=== PATIENT | male | born 1970 | race Caucasian/White ===

== ENCOUNTER 2018-07-05 07:26 | Observation (INO) | payer OTHER ==
[~2018-07-05 07:26] MED LIST: CEFAZOLIN 2 GM/50 ML (PMX) 50 ML IVPB
[2018-07-05] MEDS: SOD CHLORIDE 0.9% 1,000 ML IV ×2 (08:20→17:59)
[2018-07-05] MEDS ORDERED: METOCLOPRAMIDE 10 MG INJ IV (10:30)
[2018-07-05] MEDS ORDERED: ALBUTEROL 0.083% (NEB) 2.5 MG/3 ML AMP HHN (10:30)
[2018-07-05] MEDS ORDERED: HYDROmorphONE 1 MG/5 ML IV SYRINGE IV (10:30)
[2018-07-05] MEDS ORDERED: DIPHENHYDRAMINE 50 MG INJ IV (10:30)
[2018-07-05] MEDS ORDERED: FENTAnyl 50 MCG/ML VIAL IV ×2 (10:30)
[2018-07-05] MEDS ORDERED: BUPIVACAINE 0.25% (MPF) 30 ML INJ (10:43)
[2018-07-05] MEDS ORDERED: FENTAnyl 50 MCG/ML VIAL (11:07)
[2018-07-05] MEDS ORDERED: ROPIVACAINE 0.5 % 30 ML VIAL (11:07)
[2018-07-05] MEDS ORDERED: SUCCINYLCHOLINE CHLORIDE 100 MG/5 ML SYG IV (11:21)
[2018-07-05] MEDS ORDERED: ROCURONIUM 50 MG INJ (11:21)
[2018-07-05] MEDS ORDERED: CEFAZOLIN 1 GM INJ (11:21)
[2018-07-05] MEDS ORDERED: SUGAMMADEX SODIUM 200 MG/2 ML VIAL IV (11:21)
[2018-07-05] MEDS ORDERED: PROPOFOL 20 ML (11:21)
[2018-07-05] MEDS ORDERED: LIDOCAINE 100 MG SYRINGE (11:21)
[2018-07-05] MEDS: POLYMYXIN/BACITRACIN 1L IRRIG (11:54)
[2018-07-05] MEDS: ONDANSETRON 4 MG INJ IV (12:41)
[2018-07-05] MEDS: MEPERIDINE 25 MG INJ IV (12:42)
[2018-07-05] MEDS: HYDROmorphONE 1 MG/5 ML IV SYRINGE IV ×3 (12:49→13:19)
[2018-07-05] MEDS: HYDROCODONE/APAP (5/325) TAB PO (13:23)
[2018-07-05] MEDS: HYDROmorphONE 1 MG/ML SYG IV (15:30)
[2018-07-05] MEDS ORDERED: morphine 2 MG INJ IV (18:30)
[2018-07-05] MEDS: OXYCODONE/ACETAMINOPHEN (5/325) TAB PO (22:02)
[2018-07-06 06:14] LABS: ADD MAN DIFF? NO
[2018-07-06 06:32] LABS: BASOPHILS % 0.3 % (0.0-2.0); EOSINOPHILS # 0.1 10^3/ul (0.0-0.5); EOSINOPHILS % 0.5 % (0.0-7.0); HEMATOCRIT 41.8 % (42.0-52.0); HEMOGLOBIN 14.1 g/dl (14.0-18.0); LYMPHOCYTES # 3.3 10^3/ul (0.8-2.9); LYMPHOCYTES % 34.4 % (15.0-51.0); MEAN CORPUSCULAR HEMOGLOBIN 31.1 pg (29.0-33.0); MEAN CORPUSCULAR HGB CONC 33.7 g/dl (32.0-37.0); MEAN CORPUSCULAR VOLUME 92.3 fl (82.0-101.0); MEAN PLATELET VOLUME 11.3 fl (7.4-10.4); MONOCYTE # 0.9 10^3/ul (0.3-0.9); MONOCYTES % 9.2 % (0.0-11.0); NEUTROPHIL # 5.2 10^3/ul (1.6-7.5); NEUTROPHILS % 55.2 % (39.0-77.0); PLATELET COUNT 200 10^3/UL (140-415); RED BLOOD COUNT 4.53 10^6/ul (4.70-6.10); RED CELL DISTRIBUTION WIDTH 11.9 % (11.5-14.5)
[2018-07-06 06:32] LABS: WHITE BLOOD COUNT 9.5 10^3/ul (4.8-10.8)
[2018-07-06 06:50] LABS: ANION GAP 11 (8-16); BLOOD UREA NITROGEN 12 mg/dl (7-20); CALCIUM 8.6 mg/dl (8.4-10.2); CARBON DIOXIDE 29 mmol/L (21-31); CHLORIDE 106 mmol/L (97-110); CREATININE 0.96 mg/dl (0.61-1.24); GLUCOSE 105 mg/dl (70-220); SODIUM 142 mmol/L (135-144)
[2018-07-06] MEDS: ACETAMINOPHEN 325 MG TAB PO ×3 (07:00→23:18)
[2018-07-07 05:56] LABS: ADD MAN DIFF? NO
[2018-07-07 06:31] LABS: WHITE BLOOD COUNT 7.7 10^3/ul (4.8-10.8)
[2018-07-07 06:31] LABS: BASOPHILS % 0.3 % (0.0-2.0); EOSINOPHILS # 0.1 10^3/ul (0.0-0.5); EOSINOPHILS % 0.9 % (0.0-7.0); HEMATOCRIT 42.6 % (42.0-52.0); HEMOGLOBIN 14.1 g/dl (14.0-18.0); LYMPHOCYTES # 2.9 10^3/ul (0.8-2.9); LYMPHOCYTES % 37.3 % (15.0-51.0); MEAN CORPUSCULAR HEMOGLOBIN 30.6 pg (29.0-33.0); MEAN CORPUSCULAR HGB CONC 33.1 g/dl (32.0-37.0); MEAN CORPUSCULAR VOLUME 92.4 fl (82.0-101.0); MEAN PLATELET VOLUME 11.1 fl (7.4-10.4); MONOCYTE # 0.6 10^3/ul (0.3-0.9); MONOCYTES % 8.2 % (0.0-11.0); NEUTROPHIL # 4.1 10^3/ul (1.6-7.5); PLATELET COUNT 200 10^3/UL (140-415); RED BLOOD COUNT 4.61 10^6/ul (4.70-6.10); RED CELL DISTRIBUTION WIDTH 11.9 % (11.5-14.5)
[2018-07-07] MEDS ORDERED: [UNRECOGNIZED DRUG - OTHER] XX (09:33)
[2018-07-07] MEDS ORDERED: OLOPATADINE 0.1% 5 ML OPH BOTH EYES (10:30)
[2018-07-07] MEDS: OLOPATADINE 0.1% 5 ML OPH BOTH EYES (10:52)
[2018-07-07 13:07] LABS: ANION GAP 13 (8-16); BLOOD UREA NITROGEN 12 mg/dl (7-20); CALCIUM 8.9 mg/dl (8.4-10.2); CARBON DIOXIDE 29 mmol/L (21-31); CHLORIDE 107 mmol/L (97-110); CREATININE 0.94 mg/dl (0.61-1.24); GLUCOSE 105 mg/dl (70-220); SODIUM 145 mmol/L (135-144)
== END 2018-07-07 14:37 | disposition home or self-care (01) ==
LOC: SDS 07:26 → REC 16:26 → PP2 17:46
DX: K40.00 Bilateral inguinal hernia, with obstruction, without gangrene, not specified as recurrent (principal)
CPT/HCPCS: 49650; 80048; 85025; 99217; G0378

== ENCOUNTER 2018-07-08 17:09 | Emergency (ER) | payer OTHER ==
[2018-07-08] MEDS: LIDOCAINE 2% JELLY 5 ML TOP (17:48)
[2018-07-08] MEDS: NA PHOSPHATE/BIPHOS 133 ML ENEMA PR (18:17)
== END 2018-07-08 19:02 | disposition home or self-care (01) ==
LOC: FTE 17:09
DX: K56.41 Fecal impaction (principal)
CPT/HCPCS: 99283; Z7502